=== PATIENT | male | born 1995 | race Two or more races ===

== ENCOUNTER 2023-08-17 21:34 | Emergency (ER) | payer MEDICAID, OTHER ==
[~2023-08-17] VITALS: Ht 170.2 cm; Wt 60.2 kg
[2023-08-17 22:37] VITALS: BP 146/100; PULSE 70; RESP 14; O2SAT 98
[2023-08-18] MEDS ORDERED: CLIN1CAP70 PO (02:04)
[2023-08-18] MEDS ORDERED: ACET500T58 PO (02:04)
[2023-08-18] MEDS: cefTRIAXone SOD 1,000 MG VL IM ONE (02:21)
[2023-08-18] MEDS: TETANUS-DIPTH-ACEL PERTUSSIS 0.5ML SYR Tdap IM ONE (02:27)
== END 2023-08-18 02:30 | disposition home or self-care (01) ==
LOC: ER 21:34
DX: S41.031A Puncture wound without foreign body of right shoulder, initial encounter (principal); X58.XXXA Exposure to other specified factors, initial encounter; Y93.89 Activity, other specified; Y92.89 Other specified places as the place of occurrence of the external cause; Y99.8 Other external cause status
CPT/HCPCS: 73030; 90471; 90715; 96372; 99284; J0696